=== PATIENT | female | born 1945 | race Caucasian/White ===

== ENCOUNTER 2017-10-15 15:14 | Outpatient (CLI) | payer MEDICARE, BC ==
[~2017-10-15 15:14] MED LIST: HYDR-569 PO
== END 2017-10-15 23:59 | disposition home or self-care (01) ==
LOC: RAD 15:14
PROVIDERS: ATTEND Physician Assistant
DX: R13.14 Dysphagia, pharyngoesophageal phase (principal); K21.0 Gastro-esophageal reflux disease with esophagitis; Z79.899 Other long term (current) drug therapy
CPT/HCPCS: 74230

== ENCOUNTER 2021-08-01 13:44 | Emergency (ER) | payer MEDICARE, BC ==
[~2021-08-01] VITALS: Ht 157.5 cm; Wt 74.1 kg
[~2021-08-01 13:44] MED LIST changes: +HYDR-4383 PO; -HYDR-569 PO
[2021-08-01 14:30] VITALS: BP 122/97
[2021-08-01] MEDS ORDERED: PRED20TA PO (14:37)
[2021-08-01] MEDS ORDERED: NIRM1TAB PO (14:37)
[2021-08-01] MEDS ORDERED: ALBU6.7H9 INH (14:37)
[2021-08-01] MEDS ORDERED: BUDE180A INH (14:37)
== END 2021-08-01 15:05 | disposition home or self-care (01) ==
LOC: ER 13:44
DX: U07.1 COVID-19 (principal); R05.9 Cough, unspecified; R53.1 Weakness; I10 Essential (primary) hypertension; E03.9 Hypothyroidism, unspecified; Z98.890 Other specified postprocedural states; Z79.899 Other long term (current) drug therapy
CPT/HCPCS: 71045; 99283

== ENCOUNTER 2023-11-13 10:40 | Emergency (ER) | payer MEDICARE, BC ==
[~2023-11-13] VITALS: Ht 160 cm; Wt 72.7 kg
[~2023-11-13 10:40] MED LIST changes: +ALBU6.7H14 INH; +BUDE180A INH; +NIRM1TAB PO
[2023-11-13 13:18] LABS: BASOPHILS # (AUTO) 0.1 X10'3 (0-0.2); BASOPHILS % (AUTO) 0.6 % (0-1); EOSINOPHILS # (AUTO) 0.1 X10'3 (0-0.9); EOSINOPHILS % (AUTO) 0.9 % (0-6); HEMATOCRIT 42.8 % (35.0-45.0); HEMOGLOBIN 13.9 g/dl (12.0-16.0); LYMPHOCYTES # (AUTO) 1.4 X10'3 (1.1-4.8); LYMPHOCYTES % (AUTO) 16.3 % (21-51); MEAN CORPUSCULAR HEMOGLOBIN 30.3 PG (27.0-31.0); MEAN CORPUSCULAR HGB CONC 32.4 g/dL (33.0-36.5); MEAN CORPUSCULAR VOLUME 93.6 FL (78-98); MEAN PLATELET VOLUME 7.7 FL (7.4-10.4); MONOCYTES # (AUTO) 0.5 X10'3 (0-0.9); MONOCYTES % (AUTO) 6.2 % (2-12); NEUTROPHILS # (AUTO) 6.3 X10'3 (1.8-7.7); PLATELET COUNT 306 X10'3 (140-440); RED BLOOD COUNT 4.57 X10'6 (4.20-5.60); RED CELL DISTRIBUTION WIDTH 14.1 % (11.5-14.5); WHITE BLOOD COUNT 8.3 X10'3 (4.5-11.0)
[2023-11-13 13:45] LABS: ALANINE AMINOTRANSFERASE 37 U/L (12-78); ALBUMIN 4.3 G/DL (3.4-5.0); ALBUMIN/GLOBULIN RATIO 1.1 (1.1-1.5); ALKALINE PHOSPHATASE 46 IU/L (46-116); ANION GAP 9 (8-16); ASPARTATE AMINO TRANSFERASE 33 U/L (10-37); BILIRUBIN,DIRECT 0.2 MG/DL (0-0.3); BILIRUBIN,TOTAL 0.5 MG/DL (0.1-1.0); BLOOD UREA NITROGEN 28 MG/DL (7-18); BUN/CREATININE RATIO 21.7 (10.0-20.0); CALCIUM 9.6 MG/DL (8.5-10.1); CHLORIDE 106 MMOL/L (99-107); CREATININE 1.29 MG/DL (0.40-0.90); GLUCOSE 87 MG/DL (70-104); LIPASE 92 U/L (16-77); POTASSIUM 4.3 MMOL/L (3.5-5.1); SODIUM 139 MMOL/L (135-145); TOTAL CARBON DIOXIDE 23.9 MMOL/L (24-32); TOTAL PROTEIN 8.1 G/DL (6.4-8.2); eCRCL 31 ML/MIN; eGFR 40 ML/MIN
[2023-11-13] MEDS ORDERED: ANUHCR RC (14:16)
[2023-11-13 14:22] VITALS: BP 150/77; PULSE 68; RESP 16; TEMP 98.5; O2SAT 97
== END 2023-11-13 14:24 | disposition home or self-care (01) ==
LOC: ER 10:41
DX: K64.8 Other hemorrhoids (principal); K62.5 Hemorrhage of anus and rectum; R74.8 Abnormal levels of other serum enzymes; I10 Essential (primary) hypertension; E03.9 Hypothyroidism, unspecified; Z79.899 Other long term (current) drug therapy; Z79.51 Long term (current) use of inhaled steroids; Z98.890 Other specified postprocedural states
CPT/HCPCS: 36415; 80048; 80076; 83690; 85025; 99283